=== PATIENT | female | born 1985 | race Caucasian/White ===

== ENCOUNTER 2018-10-16 14:36 | Emergency (ER) | payer MEDICAID | END 2018-10-16 19:49 | disposition home or self-care (01) ==

== ENCOUNTER 2018-10-17 18:09 | Emergency (ER) | payer MEDICAID | END 2018-10-17 18:59 | disposition home or self-care (01) ==

== ENCOUNTER 2018-10-18 18:42 | Emergency (ER) | payer MEDICAID | END 2018-10-18 20:12 | disposition home or self-care (01) ==